=== PATIENT | female | born 1985 | race Two or more races ===

== ENCOUNTER 2017-06-06 14:31 | Emergency (ER) | payer SELFPAY ==
[~2017-06-06] VITALS: Ht 165.1 cm; Wt 74.8 kg
[2017-06-06 14:35] VITALS: BP 125/89
--- NOTE | 2017-06-06 14:46 | Emergency Room Report ---
History of Present Illness General Chief Complaint: Nausea Source: Patient, EMS Present Illness HPI 32-year-old female brought in by EMS, complaining of high blood pressure, intermittent palpitations are resolved and headache after completing 3-1/2 hour session of dialysis. Denies chest pain, shortness of breath, abdominal pain, cough Associated with some nausea and "a little bit of vomiting". Denies diarrhea, fever chills She states she has a history of high blood pressure, has been compliant with medication Patient feels much better upon arrival to the ER Allergies: Coded Allergies: No Known Allergies (Unverified , 06/06/17) Patient History Past Medical History: HTN, renal disease, dialysis Past Surgical History: none Pertinent Family History: none Social History: Denies: smoking, alcohol use, drug use Last Menstrual Period: 12-5 Now: No Immunizations: UTD Reviewed Nursing Documentation: PMH: Agreed, PSxH: Agreed Nursing Documentation-PMH Past Medical History: No History, Except For Hx Hypertension: Yes Hx Dialysis: Yes Review of Systems All Other Systems: negative except mentioned in HPI Physical Exam Vital Signs Date Time Temp Pulse Resp B/P (MAP) Pulse Ox O2 Delivery O2 Flow Rate FiO2 06/06/17 14:24 98.4 100 18 144/100 100 Room Air Sp02 EP Interpretation: reviewed, normal General Appearance: normal inspection, well appearing, no apparent distress, alert, GCS 15, non-toxic Head: normocephalic, atraumatic Eyes: bilateral eye PERRL, bilateral eye EOMI ENT: normal ENT inspection, hearing grossly normal, normal pharynx, no angioedema, normal voice, TMs + canals normal, uvula midline, moist mucus membranes Neck: normal inspection, full range of motion, supple, thyroid normal, no meningismus, no bony tend Respiratory: normal inspection, lungs clear, normal breath sounds, no rhonchi, no respiratory distress, no retraction, no accessory muscle use, no wheezing, speaking full sentences Cardiovascular #1: regular rate, rhythm, no edema, no JVD, normal capillary refill Gastrointestinal: normal inspection, normal bowel sounds, non tender, soft, no mass, no peritonitis, non-distended, no guarding, no hernia, no pulsatile mass Genitourinary: no CVA tenderness Musculoskeletal: normal inspection, back normal, normal range of motion, no calf tenderness, pelvis stable, Vinny's Sign negative, other - AV fistula left upper extremity, patient thrill Neurologic: normal inspection, alert, oriented x3, responsive, firm administrator III-XII nml as tested, motor strength/tone normal, cerebellar normal, normal gait, speech normal Psychiatric: normal inspection, judgement/insight normal, mood/affect normal, no suicidal/homicidal ideation, no delusions Skin: normal inspection, normal color, no rash Lymphatic: normal inspection, no adenopathy Medical Decision Making Diagnostic Impression: Primary Impression: Nausea alone Additional Impression: Palpitations ER Course 32-year-old female dialysis patient with palpitations, headache, and nausea after dialysis Vital signs notable for mild tachycardia, elevated BP, afebrile Unlikely to have electrolyte abnormalities after just completing 3.5 hours of dialysis Symptoms improved with oral Zofran and Tylenol rhythm strip shows no PVCs or ectopy palpitations resolved at time of arrival so ECG not deemed necessary at this time Likely symptoms related to disequilibirum Not septic or ill appearing Tolerating PO after medication in ED DC home yo M with DDX: Plan: Obtain labs, ua, ucx, ucg, CXR, EKG ER course: Patient has remained stable during ED stay. Disposition: Patient is to be discharged to home. Patient is instructed to follow up with their primary care doctor within 5 days. Strict return precautions discussed with patient such as fever, chills, worsening/severe pain, nausea, vomiting, which may indicate severe illness. Patient verbalizes understanding and agrees with plan. Please note that this Emergency Department Report was dictated using [employer] station supervisor technology software, occasionally this can lead to erroneous entry secondary to interpretation by the dictation equipment Rhythm Strip Diag. Results EP Interpretation: yes Rate: 100 Rhythm: NSR, no PVC's, no ectopy Last Vital Signs Date Time Temp Pulse Resp B/P (MAP) Pulse Ox O2 Delivery O2 Flow Rate FiO2 06/06/17 14:24 98.4 100 18 144/100 100 Room Air Status: improved Disposition: HOME, SELF-CARE ELIUD COLLINS M.D. Jun 06, 2017 14:46
[2017-06-06 15:16] VITALS: BP 125/89
== END 2017-06-06 15:18 | disposition home or self-care (01) ==
LOC: EDBD 14:31 → EMR 15:09
DX: R11.0 Nausea (principal); R00.2 Palpitations; R51 Headache; I10 Essential (primary) hypertension; Z99.2 Dependence on renal dialysis
CPT/HCPCS: 99282